=== PATIENT | female | born 1995 | race Caucasian/White ===

== ENCOUNTER 2021-06-13 09:03 | Outpatient (CLI) | payer BC, SELFPAY ==
--- NOTE | 2021-06-13 09:15 | US_ITS ---
WS: [id number] ULTRASOUND OB COMPLETE TECHNIQUE: Complete ultrasound. CLINICAL INFORMATION: SUPERVISION OF NORMAL IN 2ND TRIMESTER COMPARISON: None. FINDINGS: Cervix measures 4.3 cm Single interuterine gestation is identified with variable presentation. Placenta is posterior. Placenta grade 1. Normal amniotic fluid volume. cardiac activity: 160 BPM. AGA: 22w4d ROCIO by ultrasound: 10/13/2021 Estimated weight: 522 g., %. BDP: 5.4 cm = 22w2d HC: 20.2 cm = 22w3d AC: 17.8 cm = 22w5d FEMUR LENGTH: 3.9 cm = 22w5d Anatomic survey: Anatomic survey is normal. Normal stomach. Kidneys and bladder are normal. Normal 3 vessel cord. Norm al 3 vessel cord insertion. Normal 4 chamber heart. Normal spine. Intracranial contents are normal. N ormal posterior fossa and cisterna magna. US/US OB >= 14 weeks fetus [id number] IMPRESSION: 1. Single intrauterine with visualized cardiac activity. AGA 22w4d w ith ROCIO 10/13/2021. 2. Variable position. 3. Cervix is long and closed. 4. Placenta is posterior. No evidence of abruption or previa. 5. anatomic survey is normal. 6. Normal amniotic fluid volume.
== END 2021-06-13 09:04 | disposition home or self-care (01) ==
PROVIDERS: PCP Family Medicine; Visit Provider Family Medicine
DX: Z34.82 Encounter for supervision of other normal pregnancy, second trimester (principal)
CPT/HCPCS: 76805

== ENCOUNTER 2021-10-07 00:42 | Outpatient (CLI) | payer BC, SELFPAY ==
[2021-10-07] VITALS (8 sets, daily range): BP systolic 121–134; BP diastolic 61–73; PULSE 93–106; RESP 15; TEMP 35.9; BMI 38.6
[2021-10-07 01:29] LABS: Add Urine Culture? Yes; Bacteria Urine 3+ /hpf; Bilirubin Urine Neg (Negative); Blood Urine Neg (Negative); Glucose Urine UA Norm (Normal); Ketones Urine Negative (Negative); Leukocyte Esterase Urine 2+ (Negative); Nitrate Urine Negative (Negative); Protein Urine Neg (Negative); RBC Urine 0-4 /hpf (0-2); Urine Appearance SL Hazy (CLEAR); Urine Color Yellow (Yellow); Urobilinogen Urine Norm (Negative); WBC Urine >100 /hpf (0-5); pH Urine 7 (5-7)
[2021-10-07] MEDS: cephALEXin 500 mg Capsule PO (02:26)
== END 2021-10-07 02:37 | disposition home or self-care (01) ==
LOC: OPOB 00:43 → OBGYN 00:44
PROVIDERS: PCP Family Medicine; Visit Provider Family Medicine
DX: O36.8190 Decreased fetal movements, unspecified trimester, not applicable or unspecified (principal); Z3A.00 Weeks of gestation of pregnancy not specified
CPT/HCPCS: 59025; 81001; 87086; 99211

== ENCOUNTER 2021-10-09 14:33 | Outpatient (CLI) | payer BC, SELFPAY ==
[2021-10-09 14:44] VITALS: BP 132/81; PULSE 117; TEMP 36.3
[2021-10-09 14:48] VITALS: RESP 15
[2021-10-09 14:56] VITALS: BMI 39.1
[2021-10-09 15:00] VITALS: BP 132/63; PULSE 117
[2021-10-09 15:15] VITALS: BP 132/66; PULSE 107
[2021-10-09 15:30] VITALS: BP 132/66; PULSE 107
== END 2021-10-09 15:30 | disposition home or self-care (01) ==
LOC: OPOB 14:39 → OBGYN 14:39
PROVIDERS: PCP Family Medicine; Visit Provider Family Medicine
DX: O16.9 Unspecified maternal hypertension, unspecified trimester (principal); Z3A.00 Weeks of gestation of pregnancy not specified
CPT/HCPCS: 59025; 99211

== ENCOUNTER 2021-10-20 09:33 | Inpatient (IN) | payer BC, SELFPAY ==
[2021-10-20] VITALS (45 sets, daily range): BP systolic 114–162; BP diastolic 58–86; PULSE 79–116; RESP 17; O2SAT 98–100; BMI 39.6
[2021-10-20] MEDS: miSOPROStol 100 mcg tablet 25 MCG VAGINAL ×3 (11:09→21:50)
[2021-10-20 12:18] LABS: Basophils % 0.2 %; Eosinophils % 0.4 %; Hematocrit 32.8 % (37.0-47.0); Lymphocytes # 1.2 10^3/uL (0.8-4.8); Lymphocytes % 13.8 %; Mean Corpuscular HGB Conc 30.5 g/dL (30.0-36.0); Mean Corpuscular Hemoglobin 25.7 pg (28.0-34.0); Mean Corpuscular Volume 84.3 fl (81-99); Monocytes # 0.5 10^3/uL (0.2-0.9); Monocytes % 6.1 %; Neutrophils # 7.02 10^3/uL (1.8-7.7); Neutrophils % 78.7 %; Nucleated Red Blood Cells % 0 %; Platelet Count 197 10^3/cmm (130-400); Red Blood Count 3.89 10^6/uL (4.1-5.3); Red Cell Distribution Width 17.2 % (12.1-15.1); White Blood Count 8.9 10^3/uL (4.0-10.0)
[2021-10-20] MEDS: lactated ringers 1,000 ML 999 ML IV ×2 (18:39→19:38)
--- NOTE | 2021-10-20 20:25 | ANES.PREANE2 ---
Pre-Anesthetic Assessment Height/Weight: Height 1.63 m Weight 104.78 kg Pulse Resp BP Pulse Ox O2 Del Method 96 17 119/63 100 10/20/21 20:23 10/20/21 10:54 10/20/21 20:23 10/20/21 20:18 10/20/21 10:54 Labor Epidural Familial anesthetic complications: None Last intake: 1130 meal 10/20/21 clears- current. Social No alcohol and No tobacco Exam alert, oriented x 3 and clear to auscultation bilaterally Airway Submandibular: within normal limits Cervical ROM: within normal limits Mallampati: Class II Dentition: full History/ROS No significant history except as noted Pulmonary None reported CV/HEM None reported None reported Hepatic None reported GI Gastroesophageal Reflux Disease Metabolic None reported Musc/skel None reported Neuropsych None reported Anesthetic Plan ASA status: 2 Anesthesia: Regional (specify below) Other: Labor Epidural Medications/Allergies Home Medications Medication Instructions Recorded Confirmed Last Taken Type 1 tab PO DAILY 10/07/21 10/07/21 10/09/21 08:00 History omeprazole 20 mg capsule,delayed 20 mg PO DAILY 10/07/21 10/07/21 10/09/21 08:00 History release Allergies Allergy/AdvReac Type Severity Reaction Status Date / Time diphenhydramine Allergy ALGY-Hives Verified 10/09/21 15:00 [From Benadryl] Current Medications Generic Name Dose Route Start Last Admin Trade Name Freq PRN Reason Stop Dose Admin Lactated Ringer's 1,000 mls @ 999 mls/hr 10/20/21 16:11 10/20/21 19:38 Lactated Ringers IV 999 mls/hr .Q1H1M PRN Administration See label comments PFSH Anesthesia Female Reproductive History : 4 Data Anesthesia : 10/20/21 10:30 Short CBC 10/20/21 Range/Units 10:30 WBC 8.9 (4.0-10.0) 10^3/uL Hgb 10.0 L (11.5-15.3) g/dL Hct 32.8 L (37.0-47.0) % MCV 84.3 (81-99) fl Plt Count 197 (130-400) 10^3/cmm Neut % (Auto) 78.7 % Neut # (Auto) 7.02 (1.8-7.7) 10^3/uL Cardiac Studies: No Data to Display Anesthesia Procedures Epidural Time Out Performed: Yes Consent: from patient, risks and benefits reviewed and patient agrees to proceed Lumbar Level: L3-L4 Epidural position: sitting Epidural procedure: sterile prep of area, 1% lidocaine to numb the area, negative for paresthesia passed, test dose given, 1.5% xylocaine 1:200k epi, placed PCEA, no systemic response, sterile dressing applied, L.U.D. no apparent complications and 0.2% Ropiavacaine @ mls/hr (13) Additional Comments: Epidural placement successful on first attempt. EMILY 7.5 cm catheter threaded to 15 cm 100 mcg fentanyl given remaining 1 ml of 1% Lidocaine given with 3 ml sterile water. pump connected and started at 13 ml/hr.
[2021-10-20] MEDS: dextrose 5%-lactated ringers 1,000 ML 125 ML IV (21:38)
[2021-10-20] MEDS: ondansetron 2 mg/ML SDV 2 mL 4 MG IVP (23:48)
[2021-10-21] VITALS (60 sets, daily range): BP systolic 112–155; BP diastolic 57–123; PULSE 65–110; RESP 16; TEMP 35.4–37.1; O2SAT 97–98
[2021-10-21] MEDS: oxytocin 30 UNIT/500 ML BAG IV (03:04)
[2021-10-21] MEDS: ondansetron 2 mg/ML SDV 2 mL 4 MG IVP (05:31)
--- NOTE | 2021-10-21 07:52 | PM.OPHPUD ---
Labor & Delivery H&P Update Date of Procedure: October 21, 2021 Date H&P Performed: 10/16/21 Changes to previous documentation: None Admission Diagnosis: 26-year-old 3 para 2-0-0-2 at 39 weeks estimated gestational age Primary indication for procedure: Elective induction Planned procedure: Vaginal delivery Other information: The patient is a 39-week and 6-day estimated gestational age female who presented to the hospital for induction. Her has been unremarkable. Her blood type is O+. Her antibody screen is negative. Her infectious disease panel is within normal limits. Her glucose screen was normal. She is GBS negative. There were no concerns otherwise. I discussed the risks of induction with the patient. She acknowledges risks and wishes to proceed. Her is leaving town, and she wishes for him to be here during the delivery. We initiated Cytotec, and have followed up with Pitocin. An amniotomy was performed this morning.
--- NOTE | 2021-10-21 13:49 | P.PCNOB_ITS ---
Delivery Note: Date of delivery: October 21, 2021 Pre-delivery diagnoses: 26-year-old 3 para 2-0-0-2 at 39 weeks presenting for induction Post- delivery diagnoses: Status post spontaneous vaginal delivery Procedure: Spontaneous vaginal delivery Delivering Physician: Janes Beltran Estimated blood loss (mL): 200 Pre-Delivery Course: The patient presented to the hospital the day prior to her delivery. She was placed on Cytotec. Her labor was then augmented with Pitocin. An amniotomy was performed. She then progressed to complete without difficulty. The baby had a category 1 tracing during the large majority of her labor. Delivery: DELIVERY: The patient progressed to complete without difficulty. She delivered a male with a weight of 8 pounds 4 ounces with Apgars of 9, 9. The baby was delivered from the DADA position and placed on the mother's abdomen. The cord was then clamped and cut 1 minute after delivery. There was no nuchal cord. There was light meconium. The placenta and 3 vessel cord were delivered intact shortly thereafter. The perineum and vaginal vault were carefully examined. No lacerations were noted. Both the mother and the baby were in s table condition. Post-Delivery Status: Good A&P Assessment and plan (1) Status post vaginal delivery: I anticipate routine care. Status: Acute (2) 39 weeks gestation of : Status: Acute (3) Sterilization consult: We discussed the tubal ligation once again, and the patient does reiterate her desire for sterilization. We once again discussed the risk of bleeding, infection, and damage to intra-abdominal organs. She also understands that there is an increased risk of ectopic , and that she could become again this bide a successful tubal ligation. It appears we will be performing her tubal ligation at 5 PM today after her delivery. Status: Acute Coding Level of Care Code Acute Conservation Worker for Chg Fwd Diagnoses Status post vaginal delivery 39 weeks gestation of Z3A.39 Sterilization consult Z30.09
[2021-10-21] MEDS: dextrose 5%-lactated ringers 1,000 ML 125 ML IV (13:58)
--- NOTE | 2021-10-21 16:24 | ANE.PACU2 ---
Inpatient post-anesthesia follow up: Airway intact: Yes Vital signs: Temperature 98.7 F Pulse Rate 99 Respiratory Rate 17 Blood Pressure 154/67 Pulse Oximetry 100 Oxygen Delivery Me thod Room Air Oxygen Flow Rate Fraction of Inspir ed Oxygen Hydration adequate: Yes Nausea and vomiting: No Pain level: 2 Mental status: Baseline
--- NOTE | 2021-10-21 17:57 | PC.NURSE ---
ambulated to OB9. oriented to room/call light
[2021-10-21] MEDS: docusate sodium 100 mg Capsule PO (20:22)
[2021-10-21] MEDS: ibuprofen 800 mg tablet PO (20:22)
[2021-10-21] MEDS: lanolin oint 7 gm 1 APPLIC TOPICAL (20:22)
[2021-10-21] MEDS: benzocaine-menthol 78 gm Canister 1 SPRAY TOPICAL (20:23)
[2021-10-22] VITALS (13 sets, daily range): BP systolic 106–146; BP diastolic 60–83; PULSE 62–92; RESP 14–18; TEMP 36.4–37; O2SAT 92–99
[2021-10-22 02:17] LABS: Hematocrit 28.9 % (37.0-47.0); Hemoglobin 8.7 g/dL (11.5-15.3); Mean Corpuscular HGB Conc 30.1 g/dL (30.0-36.0); Mean Corpuscular Hemoglobin 25.3 pg (28.0-34.0); Mean Platelet Volume 11.6 fL (7.4-10.4); Platelet Count 163 10^3/cmm (130-400); Red Blood Count 3.44 10^6/uL (4.1-5.3); Red Cell Distribution Width 17.1 % (12.1-15.1); White Blood Count 10.1 10^3/uL (4.0-10.0)
--- NOTE | 2021-10-22 06:13 | PM.OBGYHP ---
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 During her she expressed a desire to have a tubal ligation . Her labs were unremarkable. Present Details : 4 Para: 3 Labs Rubella: Immune RPR: Negative GBS: Negative Review of Systems General: Reports: 10 or more systems reviewed and unremarkable except in HPI and below Const: Reports: fatigue; Denies: fever(s) Eyes: Denies: change in vision Card: Denies: chest pain : Reports: other ( bleeding within normal limits.) Musc: Reports: back pain Alexx/Lymph: Denies: easy bruising Medications/Allergies Home Medications Medication Instructions Recorded Confirmed Last Taken Type 1 tab PO DAILY 10/07/21 10/07/21 10/09/21 08:00 History omeprazole 20 mg capsule,delayed 20 mg PO DAILY 10/07/21 10/07/21 10/09/21 08:00 History release Allergies Allergy/AdvReac Type Severity Reaction Status Date / Time diphenhydramine Allergy ALGY-Hives Verified 10/09/21 15:00 [From Benadryl] Vitals/I&O/Wt Last Vital Signs Temp 98.0 F 10/22/21 03:30 Pulse 75 10/22/21 03:30 Resp 16 10/22/21 03:30 BP 111/66 10/22/21 03:30 Pulse Ox 98 10/22/21 03:30 O2 Del Method 10/22/21 03:30 10/21/21 10/21/21 10/22/21 14:59 22:59 06:59 Intake Total 172.133 / 648.718 1796 / 1172.133 Output Total 900 / 900 Balance -727.867 / -031.861 5580 / 272.133 Weight last 48 hrs Weight 231 lb Physical Exam Const: COMMON NORMALS: patient oriented x3 and alert HENMT: COMMON NORMALS: moist oral mucous membranes HEAD & SCALP: normal to inspection Chest: COMMONS NORMALS: normal inspection of the chest Resp: COMMON NORMALS: clear to auscultation bilaterally AUSCULTATION: clear to auscultation bilaterally Cardio: COMMON NORMALS: regular rate and regular rhythm RATE: regular rate RHYTHM: regular rhythm GI: INSPECTION: Yes normal to inspection : UTERUS PALPATION: Yes Other OB uterine findings (The fundus is palpable 2 cm below the umbilicus) Extremity: COMMON NORMALS: normal to inspection GENERAL: Yes edema (Trace) Neuro: COMMON NORMALS: patient oriented x3, moves all extremities and no sensory deficits noted SENSORIUM/ORIENTATION: Yes alert Psych: COMMON NORMALS: mental status grossly normal Skin: COMMON NORMALS: no rashes or lesions noted GENERAL SKIN EXAM: no rashes or lesions noted Urinary Catheter Management: [place]: Cath Placed During This Visit: yes Reason for Continuing Indwelling Catheter: Required Immobilization for Trauma or Surgery or Anesthesia Urinary Catheter Date of Insertion: 10/20/21 Urinary Catheter Time of Insertion: 21:13 Data : 10/22/21 02:04 A&P Assessment and plan (1) Sterilization consult: The patient is scheduled for a 5 PM OR time. We once again discussed the risks of bleeding, infection, and damage intra-abdominal organs. We also discussed the possibility of becoming again after a successful tubal ligation, as well as an increased risk for an ectopic post tubal ligation. She and her had no further questions and wished to proceed. I anticipate that she will be going home this evening after the tubal ligations been performed. Status: Acute (2) 39 weeks gestation of : Status: Acute (3) Status post vaginal delivery: Status: Acute Attestations Medical Necessity Statement*: Routine and post tubal ligation care Coding Level of Care Code Acute Mine Analyst for Yesika Fwkishan Diagnoses Sterilization consult Z30.09 39 weeks gestation of Z3A.39 Status post vaginal delivery
--- NOTE | 2021-10-22 06:23 | P.DS_ITS ---
Discharge Providers HOBBIES AND CRAFTS SALES REPRESENTATIVE Date of Admission: 10/20/21 09:33 Date of Discharge: 10/22/21 Attending Provider at Admission: Janes Beltran MD Attending Provider at Discharge: Janes Beltran MD Primary Care Provider: Janes Beltran Diagnoses at Discharge Discharge Diagnosis (1) Sterilization consult: Status: Acute (2) 39 weeks gestation of : Status: Acute (3) Status post vaginal delivery: Status: Acute Reason for Visit Reason for Visit: IOL Hospital Course Hospital Course The patient presented to the hospital for induction at 39 weeks. She received Cytotec, augmented by Pitocin. An amniotomy was performed. She progressed to complete and had an unremarkable delivery of a healthy-appearing male infant. Her course was unremarkable. She desired a tubal, and a tubal ligation was performed on the day of discharge. Her postoperative course was unremarkable. There were no concerns. Information Peripartum Data: Infant Delivery Method: Vaginal Physical Exam Narrative: She is in no acute distress Lungs are clear auscultation bilaterally Her heart has a regular rate and rhythm Her fundus is below the umbilicus and firm Her dressing is clean, dry and intact Her extremities have trace edema Urinary Catheter Management: [place]: Cath Placed During This Visit: yes Reason for Continuing Indwelling Catheter: Required Immobilization for Trauma or Surgery or Anesthesia Urinary Catheter Date of Insertion: 10/20/21 Urinary Catheter Time of Insertion: 21:13 Discharge Data Studies Completed and Pending Laboratory Results WBC 10.1 10^3/uL (4.0-10.0) H 10/22/21 02:04 RBC 3.44 10^6/uL (4.1-5.3) L 10/22/21 02:04 Hgb 8.7 g/dL (11.5-15.3) L 10/22/21 02:04 Hct 28.9 % (37.0-47.0) L 10/22/21 02:04 MCV 84.0 fl (81-99) 10/22/21 02:04 MCH 25.3 pg (28.0-34.0) L 10/22/21 02:04 MCHC 30.1 g/dL (30.0-36.0) 10/22/21 02:04 RDW 17.1 % (12.1-15.1) H 10/22/21 02:04 Plt Count 163 10^3/cmm (130-400) 10/22/21 02:04 MPV 11.6 fL (7.4-10.4) H 10/22/21 02:04 Neut % (Auto) 78.7 % 10/20/21 10:30 Lymph % (Auto) 13.8 % 10/20/21 10:30 [place] % (Auto) 6.1 % 10/20/21 10:30 Eos % (Auto) 0.4 % 10/20/21 10:30 Baso % (Auto) 0.2 % 10/20/21 10:30 Neut # (Auto) 7.02 10^3/uL (1.8-7.7) 10/20/21 10:30 Lymph # (Auto) 1.2 10^3/uL (0.8-4.8) 10/20/21 10:30 [place] # (Auto) 0.5 10^3/uL (0.2-0.9) 10/20/21 10:30 Eos # (Auto) 0.0 10^3/uL (0.0-0.8) 10/20/21 10:30 Baso # (Auto) 0.0 10^3/uL (0.0-0.1) 10/20/21 10:30 Nucleated RBC % (auto) 0 % 10/20/21 10:30 Nucleated RBCs # 0.0 /100WBC 10/20/21 10:30 Vitals Last Vital Signs Temp 98.0 F 10/22/21 03:30 Pulse 75 10/22/21 03:30 Resp 16 10/22/21 03:30 BP 111/66 10/22/21 03:30 Pulse Ox 98 10/22/21 03:30 O2 Del Method 10/22/21 03:30 Discharge Plan Discharge Patient Disposition: Home Prescriptions: New ibuprofen 800 mg Tablet 800 mg PO TID Qty: 45 0RF hydrocodone-acetaminophen 5-325 mg Tablet 1 tab PO Q6H PRN (Reason: Moderate To Severe Pain) Qty: 10 0RF Continued tablet 1 tab PO DAILY Discontinued omeprazole 20 mg Capsule,Delayed Release(Dr/Ec) 20 mg PO DAILY Discharge Orders: Discharge Order (Routine); Ordered 10/22/21 Ordered By: Janes Beltran Referrals: Janes Beltran MD [Physician] - 4-7 days Discharge Diet: Usual diet Discharge Activity: Limit activity as instructed Patient Instructions: Depression (DC), Bleeding (DC), Preeclampsia and Eclampsia After Delivery (GEN), Vaginal Delivery (DC), OB Discharge Report, OB Food/Drug Interaction Guide, Opioid Safety, OB H ome Care, OB Proud Parent Packet Discharge Attestations HOBBIES AND CRAFTS SALES REPRESENTATIVE Time Spent in Discharge Care*: less than 30 min Coding Level of Care Code Acute Surtass Analyst for Chg Fwd Diagnoses Sterilization consult Z30.09 39 weeks gestation of Z3A.39 Status post vaginal delivery
[2021-10-22] MEDS: prenatal vitamin Capsule 1 CAP PO (07:38)
[2021-10-22] MEDS: docusate sodium 100 mg Capsule PO (07:38)
[2021-10-22] MEDS: ibuprofen 800 mg tablet PO ×2 (07:38→21:05)
--- NOTE | 2021-10-22 16:20 | ANES.PREANE2 ---
Pre-Anesthetic Assessment Height/Weight: Height 1.63 m Weight 104.78 kg Temp Pulse Resp BP Pulse Ox O2 Del Method 97.8 F 72 14 116/72 98 10/22/21 08:44 10/22/21 10:12 10/22/21 10:12 10/22/21 10:12 10/22/21 03:30 10/22/21 03:30 Preop Diagnosis: female desiring sterilization Operation Date: 10/22/21 17:00 Proposed Procedures p Post Bilateral Tubal Ligation(Not Applicable) - Janes Beltran MD Familial anesthetic complications: none Was Beta Sreekanth taken within 24 hours: N/A Was Clonidine taken within 24 hours: N/A Social No alcohol and No tobacco Exam alert, oriented x 3, clear to auscultation bilaterally and regular rate & rhythm Airway Submandibular: within normal limits Cervical ROM: within normal limits Mallampati: Class II Dentition: full History/ROS No significant history except as noted Anesthetic Plan ASA status: 2 Anesthesia: Choice Medications/Allergies Home Medications Medication Instructions Recorded Confirmed Last Taken Type 1 tab PO DAILY 10/07/21 10/07/21 10/09/21 08:00 History omeprazole 20 mg capsule,delayed 20 mg PO DAILY 10/07/21 10/07/21 10/09/21 08:00 History release Allergies Allergy/AdvReac Type Severity Reaction Status Date / Time diphenhydramine Allergy ALGY-Hives Verified 10/09/21 15:00 [From Benadryl] Current Medications Generic Name Dose Route Start Last Admin Trade Name Freq PRN Reason Stop Dose Admin Benzocaine 1 spray 10/21/21 14:00 10/21/21 20:23 Benzocaine-Menthol 78 Gm Canister TOPICAL 1 can PRN PRN Administration PAIN Docusate Sodium 100 mg 10/21/21 18:00 10/22/21 07:38 Docusate Sodium 100 Mg Capsule PO 100 mg BID NEIL Administration Ibuprofen 800 mg 10/21/21 15:00 10/22/21 07:38 Ibuprofen 800 Mg Tablet PO 800 mg TID NEIL Administration Lanolin 1 applic 10/21/21 14:00 10/21/21 20:22 Lanolin Oint 7 Gm TOPICAL 1 tube PRN PRN Administration DRYNESS Multivit/Folic Acid/Iron 1 cap 10/22/21 09:00 10/22/21 07:38 Vitamin Capsule PO 1 cap DAILY NEIL Administration PFSH Anesthesia Female Reproductive History : 4 Data Anesthesia : 10/22/21 02:04 Short CBC 10/22/21 Range/Units 02:04 WBC 10.1 H (4.0-10.0) 10^3/uL Hgb 8.7 L (11.5-15.3) g/dL Hct 28.9 L (37.0-47.0) % MCV 84.0 (81-99) fl Plt Count 163 (130-400) 10^3/cmm Cardiac Studies: No Data to Display
[2021-10-22] MEDS: citric acid-sodium citrate 30 mL UDC PO (16:24)
[2021-10-22] MEDS: metoclopramide 5 mg/mL SDV 2 mL 10 MG IVP (16:25)
[2021-10-22] MEDS: famotidine 20 mg/2 mL INJ IVP (16:25)
--- NOTE | 2021-10-22 17:25 | PC.NURSE ---
To OB OR at 0500
--- NOTE | 2021-10-22 18:11 | PM.OP ---
Operative Report Date of procedure: October 22, 2021 Pre-op diagnosis: Preop Diagnosis female desiring sterilization Post-op diagnosis: same Procedure done: Minilaparotomy bilateral tubal ligation Specimens removed/disposition: Bilateral fallopian tube segments with the right segment being tagged sent to pathology in the same container Surgeon: Janes Beltran Estimated blood loss (mL): 5 Complications: None Procedure: The patient was brought back to the operating room where anesthesia was found to be adequate. 10 mL of 0.5% bupivacaine was then used to pre-anesthetize the area just inferior to the umbilicus. A #15 blade was then used to make a 3 cm transverse incision just inferior to the umbilicus. I then dissected down to the underlying subcutaneous tissue until arriving at the fascia. The fascia was then nicked with the scalpel. The fascial incision was extended manually. I identified the fundus of the uterus and followed it to the left fallopian tube. The fallopian tube was then followed to the fimbria. The tube was then ligated, cut, and cauterized in a modified [place] fashion using 0 chromic. The right fallopian tube was then identified and followed through to the fimbria. It was ligated, cut, and cauterized in similar fashion. The right fallopian tube was tagged. Both fallopian tubes had excellent hemostasis. The fascia was reapproximated using 0 Vicryl in running stitch. The subcutaneous tissue was carefully examined and no further bleeding was noted. The skin was then reapproximated using 4-0 Vicryl in a running subcuticular stitch. A sterile dressing was placed. All counts were correct x2. The patient was moved to the recovery room in stable condition.
--- NOTE | 2021-10-22 18:21 | ANE.PACU2 ---
Inpatient post-anesthesia follow up: Airway intact: Yes Vital signs: Temperature 98.6 F Pulse Rate 68 Respiratory Rate 18 Blood Pressure 125/82 Pulse Oximetry 98 Oxygen Delivery Me thod Room Air Oxygen Flow Rate Fraction of Inspir ed Oxygen Hydration adequate: Yes Nausea and vomiting: No Pain level: Other (0) Mental status: Baseline
[2021-10-22] MEDS: phenol oral Spray 177 mL 3 SPRAY MUCOUS MEM (19:33)
[2021-10-22] MEDS: HYDROcodone-acetaminophen 5-325 mg Tablet PO (19:36)
[2021-10-23 04:08] VITALS: BP 107/62; PULSE 58; RESP 17; TEMP 36.8; O2SAT 98
[2021-10-23] MEDS: HYDROcodone-acetaminophen 5-325 mg Tablet PO (06:30)
[2021-10-23] MEDS: docusate sodium 100 mg Capsule PO (09:12)
[2021-10-23] MEDS: ibuprofen 800 mg tablet PO (09:12)
[2021-10-23] MEDS: prenatal vitamin Capsule 1 CAP PO (09:12)
[2021-10-23 09:20] VITALS: BP 112/60; PULSE 18; RESP 18; TEMP 36.7; O2SAT 98
== END 2021-10-23 09:45 | disposition home or self-care (01) | DRG 798 ==
LOC: OPOB 09:34 → OBGYN 09:34
PROVIDERS: Admitting Provider Family Medicine; PCP Family Medicine; Visit Provider Family Medicine
PROC: 0UB70ZZ Excision of Bilateral Fallopian Tubes, Open Approach (ICD-10-PCS; CPT 58605; principal; 2021-10-22 17:00)
DX: O77.0 Labor and delivery complicated by meconium in amniotic fluid (principal); Z37.0 Single live birth; O90.89 Other complications of the puerperium, not elsewhere classified; G89.18 Other acute postprocedural pain; Z3A.39 39 weeks gestation of pregnancy; Z30.2 Encounter for sterilization
CPT/HCPCS: 12345; 36415; 51702; 58605; 59025; 59409; 85025; 85027; 88302; J0330; J1100; J1885; J2250; J2405; J2704; J2765; J2795; J3010; J3490

== ENCOUNTER 2021-10-28 21:05 | Emergency (ER) | payer BC, SELFPAY ==
[2021-10-28 21:06] VITALS: BMI 35.2
[2021-10-28 21:09] VITALS: BP 148/84; PULSE 84; RESP 16; TEMP 36.5; O2SAT 96
--- NOTE | 2021-10-28 21:17 | USR_ITS ---
PROCEDURE INFORMATION: Exam: US Nonobstetric Pelvis; Complete Exam date and time: 10/28/2021 9:41 PM Age: 26 years old Clinical indication: Other: Post- on 10/21/2021 with heavy vaginal bleeding tonight; Additional info: Post bleeding TECHNIQUE: Imaging protocol: Transabdominal pelvic nonobstetric ultrasound. Complete exam. Real time ultrasound with image documentation. COMPARISON: US OB >= 14 weeks fetus [id number] 06/13/2021 9:21 AM FINDINGS: GESTATION: Gestation: [id number] amount of complex material in the uterine cavity may reflect blood products, retained products of conception are not excluded, close clinical correlation advised. Negative for color blood flow seen within this material. Uterus: Uterus is enlarged measuring 17 x 6.9 x 10 cm with a thickened endometrium to 2 cm, likely post in nature. Right ovary/adnexa: Ovary is normal. No mass. Normal blood flow. Left ovary/adnexa: Ovary is normal. No mass. Normal blood flow. Intraperitoneal space: No intraperitoneal fluid. Urinary bladder: Normal. US/US pelvic complete* [id number] IMPRESSION: 1. Uterus is enlarged measuring 17 x 6.9 x 10 cm with a thickened endometrium to 2 cm, likely post in nature. 2. [id number]-yp-[id number] amount of complex material in the uterine cavity may reflect blood products, retained products of conception are not excluded, close clinical correlation advised. Negative for color blood flow seen within this material.
--- NOTE | 2021-10-28 21:19 | ED_ITS ---
HPI - General Adult General: Chief complaint: Vaginal Bleeding Stated complaint: VAG BLEEDING Time Seen by Provider: 10/28/21 21:06 Source: patient and EMS Mode of arrival: EMS Limitations: no limitations History of Present Illness: 26-year-old female who is 7 days . She had a vaginal delivery at term she had no issues. States today she has had some heavy vaginal bleeding. She states that its been fairly heavy and then slowed down and is heavier again she denies passing any clots denies any lightheadedness denies any pain denies any fevers denies any worsening improving factors. Associated symptoms: Deny chest pain, dyspnea, headache(s), nausea, rash or vomiting Review of Systems Const: Denies: fever(s), chills, body aches or change in appetite Eyes: Denies: blurry vision or eye discomfort ENMT: Denies: throat pain or dental pain Card: Denies: chest pain Resp: Denies: dyspnea GI: Denies: abdominal pain, nausea, vomiting or diarrhea : Reports: vaginal bleeding Musc: Denies: neck pain or back pain Skin/Breast: Denies: rash Neuro: Denies: headache(s) Psych: Denies: depression Alexx/Lymph: Denies: easy bruising All/Imm: Denies: urticaria Physical Exam Const: COMMON NORMALS: no acute distress, patient oriented x3 and healthy appearing HENMT: COMMON NORMALS: normocephalic and atraumatic HEAD & SCALP: normocephalic and atraumatic Eye: COMMON NORMALS: Equal, round and reactive pupils present and EOMs intact bilaterally PUPIL: Yes Equal, round and reactive pupils present Neck/C-Spine: COMMON NORMALS: full ROM and supple Chest: COMMONS NORMALS: normal inspection of the chest and normal palpation of entire chest wall Resp: COMMON NORMALS: normal respiratory effort, No retractions, No use of accessory muscles and clear to auscultation bilaterally AUSCULTATION: clear to auscultation bilaterally Cardio: COMMON NORMALS: regular rate, regular rhythm and No murmurs present (Cardio) RATE: regular rate RHYTHM: regular rhythm GI: COMMON NORMALS: Normal to inspection, nondistended, normoactive bowel sounds present, Soft to palpation, non-tender and no masses PALPATION: Yes Soft to palpation : OTHER: Cervix closed no active bleeding at this time very small old clot in the vaginal vault Extremity: COMMON NORMALS: normal to inspection and full ROM Neuro: COMMON NORMALS: patient oriented x3, moves all extremities and no focal motor deficits Psych: COMMON NORMALS: mental status grossly normal, Normal thought process present and cooperative THOUGHT PROCESS: Normal thought process present Skin: COMMON NORMALS: no rashes or lesions noted and no wounds GENERAL SKIN EXAM: no rashes or lesions noted Course Vital Signs: Vital signs: Vital Signs Temperature 97.7 F 10/28/21 21:09 Pulse Rate 84 10/28/21 21:09 Respiratory Rate 16 10/28/21 21:09 Blood Pressure 148/84 10/28/21 21:09 Pulse Oximetry 96 10/28/21 21:09 Oxygen Delivery Me thod 10/28/21 21:09 [facility] - General Adult Medical Decision Making Patient presents here with bleeding her bleeding is minimal my pelvic exam she had no bleeding from her cervix during the exam does have some slight retained blood on the ultrasound I did speak to her OB Dr. Beltran will plan on discharge at this time her vitals and hemoglobin are stable she actually has an appoint with him tomorrow and she is to follow-up as scheduled return if her bleeding worsens. Lab Data : 10/28/21 21:50 10/28/21 21:50 Radiology Impressions Pelvis Ultrasound 10/28/21 21:17 IMPRESSION: 1. Uterus is enlarged measuring 17 x 6.9 x 10 cm with a thickened endometrium to 2 cm, likely post in nature. 2. [id number] amount of complex material in the uterine cavity may reflect blood products, retained products of conception are not excluded, close clinical correlation advised. Negative for color blood flow seen within this material. Laboratory Results WBC 9.1 10^3/uL (4.0-10.0) 10/28/21 21:50 RBC 4.47 10^6/uL (4.1-5.3) 10/28/21 21:50 Hgb 11.2 g/dL (11.5-15.3) L 10/28/21 21:50 Hct 37.1 % (37.0-47.0) 10/28/21 21:50 MCV 83.0 fl (81-99) 10/28/21 21:50 MCH 25.1 pg (28.0-34.0) L 10/28/21 21:50 MCHC 30.2 g/dL (30.0-36.0) 10/28/21 21:50 RDW 17.1 % (12.1-15.1) H 10/28/21 21:50 Plt Count 273 10^3/cmm (130-400) 10/28/21 21:50 MPV 10.6 fL (7.4-10.4) H 10/28/21 21:50 Neut % (Auto) 75.1 % 10/28/21 21:50 Lymph % (Auto) 17.1 % 10/28/21 21:50 [place] % (Auto) 5.6 % 10/28/21 21:50 Eos % (Auto) 1.3 % 10/28/21 21:50 Baso % (Auto) 0.4 % 10/28/21 21:50 Neut # (Auto) 6.86 10^3/uL (1.8-7.7) 10/28/21 21:50 Lymph # (Auto) 1.6 10^3/uL (0.8-4.8) 10/28/21 21:50 [place] # (Auto) 0.5 10^3/uL (0.2-0.9) 10/28/21 21:50 Eos # (Auto) 0.1 10^3/uL (0.0-0.8) 10/28/21 21:50 Baso # (Auto) 0.0 10^3/uL (0.0-0.1) 10/28/21 21:50 Nucleated RBC % (auto) 0 % 10/28/21 21:50 Nucleated RBCs # 0.0 /100WBC 10/28/21 21:50 Sodium 139 mmol/L (136-145) 10/28/21 21:50 Potassium 4.2 mmol/L (3.5-5.1) 10/28/21 21:50 Chloride 103 mmol/L (98-107) 10/28/21 21:50 Carbon Dioxide 23 mmol/L (22-29) 10/28/21 21:50 Anion Gap 17.2 (5-19) 10/28/21 21:50 BUN 12 mg/dL (6-20) 10/28/21 21:50 Creatinine 0.6 mg/dL (0.5-0.9) 10/28/21 21:50 GFR Calculation 122.8 mL/min (90-130) 10/28/21 21:50 Glucose 86 mg/dL (65-115) 10/28/21 21:50 Calculated Osmolality 287 mOsm/kg (285-295) 10/28/21 21:50 Calcium 10.1 mg/dL (8.5-10.5) 10/28/21 21:50 Discharge Plan Discharge Patient Disposition: Home Clinical Impression: Vaginal bleeding Condition: Stable Prescriptions: No Action ibuprofen 800 mg Tablet 800 mg PO TID Qty: 45 0RF hydrocodone-acetaminophen 5-325 mg Tablet 1 tab PO Q6H PRN (Reason: Moderate To Severe Pain) Qty: 10 0RF tablet 1 tab PO DAILY Discharge Orders: Discharge ED (Routine); Ordered 10/28/21 Ordered By: Nain Davidson Referrals: Janes Beltran MD [Primary Care Provider] - 1-3 days Discharge Diet: Advance as tolerated Discharge Activity: Resume usual activity Patient Instructions: Bleeding (ED) Coding Level of Care Code ED Senior Network Security Engineer for Chg Fwd Exam Comprehensive
[2021-10-28 21:53] LABS: Basophils % 0.4 %; Eosinophils # 0.1 10^3/uL (0.0-0.8); Eosinophils % 1.3 %; Hematocrit 37.1 % (37.0-47.0); Hemoglobin 11.2 g/dL (11.5-15.3); Lymphocytes # 1.6 10^3/uL (0.8-4.8); Lymphocytes % 17.1 %; Mean Corpuscular HGB Conc 30.2 g/dL (30.0-36.0); Mean Corpuscular Hemoglobin 25.1 pg (28.0-34.0); Mean Platelet Volume 10.6 fL (7.4-10.4); Monocytes # 0.5 10^3/uL (0.2-0.9); Monocytes % 5.6 %; Neutrophils # 6.86 10^3/uL (1.8-7.7); Neutrophils % 75.1 %; Nucleated Red Blood Cells % 0 %; Platelet Count 273 10^3/cmm (130-400); Red Blood Count 4.47 10^6/uL (4.1-5.3); Red Cell Distribution Width 17.1 % (12.1-15.1); White Blood Count 9.1 10^3/uL (4.0-10.0)
[2021-10-28 22:18] LABS: Anion Gap 17.2 (5-19); Blood Urea Nitrogen 12 mg/dL (6-20); Calcium 10.1 mg/dL (8.5-10.5); Carbon Dioxide 23 mmol/L (22-29); Chloride 103 mmol/L (98-107); Glomerular Filtration Rate 122.8 mL/min (90-130); Glucose 86 mg/dL (65-115); Osmolality Calculated 287 mOsm/kg (285-295); Potassium 4.2 mmol/L (3.5-5.1); Sodium 139 mmol/L (136-145)
[2021-10-28 23:06] VITALS: BP 135/84; PULSE 92; RESP 16; O2SAT 96
== END 2021-10-28 23:21 | disposition home or self-care (01) ==
PROVIDERS: Emergency Provider Emergency Medicine; PCP Family Medicine
DX: N93.9 Abnormal uterine and vaginal bleeding, unspecified (principal)
CPT/HCPCS: 76856; 80048; 85025; 99284

== ENCOUNTER 2021-11-08 19:27 | Emergency (ER) | payer BC, SELFPAY ==
[2021-11-08 19:30] VITALS: BP 199/76; PULSE 139; RESP 18; TEMP 38.3; O2SAT 97; BMI 35.9
--- NOTE | 2021-11-08 20:15 | ED_ITS ---
HPI - General Adult General: Chief complaint: General Medical Stated complaint: right breast pain Time Seen by Provider: 11/08/21 20:00 History of Present Illness: Patient is a 26-year-old female presenting to the emergency room for 3 days of right-sided breast pain. Patient still has been pumping. Most recently on Wednesday, patient noticed areas of redness and swelling of the right breast. Patient was prescribed Keflex by Dr. Beltran. Patient has been using Keflex for the last 2 days however noticed worsening swelling and pain. In addition, patient had a fever of 103 degrees yesterday. Earlier today, patient went to urgent care was prescribed Dicloxacillin. She went to the pharmacy was unable to fulfill the prescription. Patient then came to the emergency room. Home in triage, patient was noted to be tachycardic to the 130s with a fever of 103 degrees. Patient complains of significant pain of the right breast. Patient has no complaints of left breast. Denies any nausea/vomiting, purulent drainage from the breast, diarrhea, abdominal pain, nausea/vomiting, melena/hematochezia, complaints Onset: 3 days ago Duration:3 days Location:home Severity:moderate/severe Associated symptoms: Reports malaise; Deny chest pain, dyspnea, nausea, palpitations or vomiting Review of Systems Const: Reports: fever(s), chills, fatigue and malaise Eyes: Denies: change in vision ENMT: Denies: mouth pain Card: Denies: chest pain or palpitations Resp: Denies: dyspnea or non-productive cough GI: Denies: abdominal pain, nausea, vomiting or diarrhea : Denies: dysuria Musc: Denies: extremity pain Skin/Breast: Reports: new lesions (+R breast swelling, redness and pain) Neuro: Denies: weakness in extremities Psych: Reports: other (Normal mood) Alexx/Lymph: Denies: easy bruising PFSH ED PFSH: Medical History Social History Smoking and tobacco status: never smoked Alcohol intake: never Substance/Drug Use: never Physical Exam Const: COMMON NORMALS: alert HENMT: COMMON NORMALS: atraumatic HEAD & SCALP: atraumatic MOUTH: moist mucous membranes not abnormal Eye: COMMON NORMALS: EOMs intact bilaterally and conjunctivae normal CONJUNCTIVA: Yes conjunctivae normal Neck/C-Spine: COMMON NORMALS: full ROM and supple Resp: COMMON NORMALS: normal respiratory effort and clear to auscultation bilaterally AUSCULTATION: clear to auscultation bilaterally Cardio: COMMON NORMALS: regular rate RATE: regular rate GI: COMMON NORMALS: Soft to palpation and non-tender PALPATION: Yes Soft to palpation Extremity: COMMON NORMALS: full ROM Neuro: SENSORIUM/ORIENTATION: Yes alert MOTOR EXAM: No Abnormal motor strength present and Other motor observations present (no focal motor deficits) Psych: COMMON NORMALS: speech normal SPEECH: Yes normal speech MOOD & AFFECT: Yes euthymic mood Course Vital Signs: Vital signs: Vital Signs Temperature 100.9 F H 11/08/21 19:30 Pulse Rate 112 H 11/09/21 00:04 Respiratory Rate 19 H 11/09/21 00:04 Blood Pressure 199/76 11/08/21 19:30 Pulse Oximetry 100 11/09/21 00:04 Oxygen Delivery Me thod 11/08/21 19:30 MDM - General Adult Medical Decision Making Patient is a 26-year-old female presenting to the emergency room for 3 days of right-sided breast pain. Lab work-up is largely unremarkable. Patient received IVF with improvement in heart rate. Serial lactates showed improvement. Patient received 1 dose of IV antibiotics. Patient is discharged for close follow-up. Case signed out to Dr. Willingham pending reassessment. Lab Data : 11/08/21 20:20 11/08/21 20:20 Radiology Impressions Soft Tissue Ultrasound 11/08/21 22:23 IMPRESSION: Somewhat diffuse subcutaneous edema adjacent to the right nipple in the 2-3 o'clock position concerning for a cellulitis, negative for focal fluid collection to suggest an abscess. Laboratory Results WBC 7.3 10^3/uL (4.0-10.0) 11/08/21 20:20 RBC 4.43 10^6/uL (4.1-5.3) 11/08/21 20:20 Hgb 10.9 g/dL (11.5-15.3) L 11/08/21 20:20 Hct 36.6 % (37.0-47.0) L 11/08/21 20:20 MCV 82.6 fl (81-99) 11/08/21 20:20 MCH 24.6 pg (28.0-34.0) L 11/08/21 20:20 MCHC 29.8 g/dL (30.0-36.0) L 11/08/21 20:20 RDW 16.3 % (12.1-15.1) H 11/08/21 20:20 Plt Count 221 10^3/cmm (130-400) 11/08/21 20:20 MPV 11.4 fL (7.4-10.4) H 11/08/21 20:20 Neut % (Auto) 78.1 % 11/08/21 20:20 Lymph % (Auto) 12.1 % 11/08/21 20:20 [place] % (Auto) 6.5 % 11/08/21 20:20 Eos % (Auto) 1.8 % 11/08/21 20:20 Baso % (Auto) 0.4 % 11/08/21 20:20 Neut # (Auto) 5.68 10^3/uL (1.8-7.7) 11/08/21 20:20 Lymph # (Auto) 0.9 10^3/uL (0.8-4.8) 11/08/21 20:20 [place] # (Auto) 0.5 10^3/uL (0.2-0.9) 11/08/21 20:20 Eos # (Auto) 0.1 10^3/uL (0.0-0.8) 11/08/21 20:20 Baso # (Auto) 0.0 10^3/uL (0.0-0.1) 11/08/21 20:20 Nucleated RBC % (auto) 0 % 11/08/21 20:20 Nucleated RBCs # 0.0 /100WBC 11/08/21 20:20 Sodium 140 mmol/L (136-145) 11/08/21 20:20 Potassium 4.0 mmol/L (3.5-5.1) 11/08/21 20:20 Chloride 104 mmol/L (98-107) 11/08/21 20:20 Carbon Dioxide 20 mmol/L (22-29) L 11/08/21 20:20 Anion Gap 20.0 (5-19) H 11/08/21 20:20 BUN 9 mg/dL (6-20) 11/08/21 20:20 Creatinine 0.7 mg/dL (0.5-0.9) 11/08/21 20:20 GFR Calculation 102.8 mL/min (90-130) 11/08/21 20:20 Glucose 99 mg/dL (65-115) 11/08/21 20:20 Calculated Osmolality 289 mOsm/kg (285-295) 11/08/21 20:20 Lactate 1.8 mmol/L (0.5-2.2) 11/08/21 22:30 Calcium 9.4 mg/dL (8.5-10.5) 11/08/21 20:20 Discharge Plan Discharge Patient Disposition: Home Clinical Impression: Mastitis without abscess Condition: Stable Prescriptions: New clindamycin HCl 300 mg capsule 300 mg PO Q6H 10 Days Qty: 40 0RF hydrocodone-acetaminophen 5-325 mg tablet 1 tab PO Q8H PRN (Reason: pain) Qty: 7 0RF Discontinued dicloxacillin 500 mg capsule 500 mg PO Q6H 14 Days Qty: 56 0RF No Action ibuprofen 800 mg Tablet 800 mg PO TID Qty: 45 0RF tablet 1 tab PO DAILY Discharge Orders: Discharge ED (Routine); Ordered 11/09/21 Ordered By: Nahid Willingham Referrals: Brian Miller MD [Primary Care Provider] - Janes Beltran MD [Physician] - 1-3 days Patient Instructions: Mastitis (ED), Opioid Safety Activity Restrictions/Additional Instructions: Return for fever greater than 100 despite 2-3 doses of the new antibiotic, worsening pain, spreading redness, or streaking despite 2-3 doses of the new antibiotic. Vomiting liquids or medications, other concerning symptoms. Call your doctor on Wednesday, they will want to see you in follow-up. Coding Level of Care Code ED Tree Feller for Yesika Fwd Exam Comprehensive
[2021-11-08] MEDS: acetaminophen 500 mg Tablet 1000 MG PO (20:20)
[2021-11-08 20:27] LABS: Basophils % 0.4 %; Eosinophils # 0.1 10^3/uL (0.0-0.8); Eosinophils % 1.8 %; Hematocrit 36.6 % (37.0-47.0); Hemoglobin 10.9 g/dL (11.5-15.3); Lymphocytes # 0.9 10^3/uL (0.8-4.8); Lymphocytes % 12.1 %; Mean Corpuscular HGB Conc 29.8 g/dL (30.0-36.0); Mean Corpuscular Hemoglobin 24.6 pg (28.0-34.0); Mean Corpuscular Volume 82.6 fl (81-99); Mean Platelet Volume 11.4 fL (7.4-10.4); Monocytes # 0.5 10^3/uL (0.2-0.9); Monocytes % 6.5 %; Neutrophils # 5.68 10^3/uL (1.8-7.7); Neutrophils % 78.1 %; Nucleated Red Blood Cells % 0 %; Platelet Count 221 10^3/cmm (130-400); Red Blood Count 4.43 10^6/uL (4.1-5.3); Red Cell Distribution Width 16.3 % (12.1-15.1); White Blood Count 7.3 10^3/uL (4.0-10.0)
[2021-11-08] MEDS: vancomycin 1,500 MG/300 ML PIGGYBACK 250 MG IV (20:27)
[2021-11-08] MEDS: sodium chloride 0.9% 1,000 ML 999 ML IV ×2 (20:27→22:50)
[2021-11-08 20:44] LABS: Lactate (Lactic Acid level) 2.7 mmol/L (0.5-2.2)
[2021-11-08 20:46] LABS: Blood Urea Nitrogen 9 mg/dL (6-20); Calcium 9.4 mg/dL (8.5-10.5); Carbon Dioxide 20 mmol/L (22-29); Chloride 104 mmol/L (98-107); Glomerular Filtration Rate 102.8 mL/min (90-130); Glucose 99 mg/dL (65-115); Osmolality Calculated 289 mOsm/kg (285-295); Sodium 140 mmol/L (136-145)
--- NOTE | 2021-11-08 22:23 | USR_ITS ---
PROCEDURE INFORMATION: Exam: US Unlisted Ultrasound Procedure Exam date and time: 11/08/2021 10:37 PM Age: 26 years old Clinical indication: Condition or disease; Condition/disease: Fever, hr elevated, possible skin infection; Patient HX: Right breast pain for past 3 days; Additional info: Skin infection of the breast / redness and swelling TECHNIQUE: Imaging protocol: Unlisted ultrasound procedure (eg, diagnostic, interventional). COMPARISON: No relevant prior studies available. FINDINGS: Procedural imaging: Somewhat diffuse subcutaneous edema adjacent to the right nipple in the 2-3 o'clock position concerning for a cellulitis, negative for focal fluid collection to suggest an abscess. US/US soft tissue/extremity [id number] IMPRESSION: Somewhat diffuse subcutaneous edema adjacent to the right nipple in the 2-3 o'clock position concerning for a cellulitis, negative for focal fluid collection to suggest an abscess.
--- NOTE | 2021-11-08 22:52 | PC.NURSE ---
Ultrasound at bedside
[2021-11-08 23:29] LABS: Lactate (Lactic Acid level) 1.8 mmol/L (0.5-2.2)
[2021-11-09 00:04] VITALS: PULSE 112; RESP 19; O2SAT 100
== END 2021-11-09 00:10 | disposition home or self-care (01) ==
PROVIDERS: Emergency Provider Emergency Medicine; PCP Family Medicine
DX: O91.22 Nonpurulent mastitis associated with the puerperium (principal)
CPT/HCPCS: 76882; 80048; 83605; 85025; 87040; 96365; 96366; 99285; J3370; J7030

== ENCOUNTER 2021-12-19 18:53 | Emergency (ER) | payer BC, SELFPAY ==
[2021-12-19 18:57] VITALS: BP 143/83; PULSE 88; RESP 15; TEMP 37.1; O2SAT 99; BMI 35.6
--- NOTE | 2021-12-19 20:00 | CTR_ITS ---
PROCEDURE INFORMATION: Exam: CT Head Without Contrast Exam date and time: 12/19/2021 8:38 PM Age: 26 years old Clinical indication: Dizziness; Additional info: Dizzy headache HTN TECHNIQUE: Imaging protocol: Computed tomography of the head without contrast. Radiation optimization: All CT scans at this facility use at least one of these dose optimization techniques: automated exposure control; mA and/or kV adjustment per patient size (includes targeted exams where dose is matched to clinical indication); or iterative reconstruction. COMPARISON: MR head wo/w con [id number] 01/19/2018 8:48 AM RADIATION DOSE METRICS: Total DLP (mGy-cm): 1094.22 FINDINGS: Brain: Normal. No hemorrhage. Unremarkable white matter. No mass effect. Cerebral ventricles: No ventriculomegaly. Paranasal sinuses: Small polyp or retention cyst in the left maxillary sinus. The other sinuses are clear. Mastoid air cells: Visualized mastoid air cells are well aerated. Bones/joints: Unremarkable. No acute fracture. Soft tissues: Unremarkable. CT/CT head wo con* [id number] IMPRESSION: No acute intracranial abnormality.
--- NOTE | 2021-12-19 20:00 | ECG_ITS ---
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 Measurements Intervals [place] Rate: 79 P: 19 VA: 139 QRS: 8 QRSD: 94 T: -3 QT: 358 QTc: 412 Interpretive Statements SINUS RHYTHM WITH SINUS ARRHYTHMIA Compared to ECG 03/25/2015 02:04:17 Sinus tachycardia no longer present Electronically Signed On 12-22-2021 23:05:52 CDT by Trinity Alicea M.D. [email or web address] pointe [email or web address]/[id number]
--- NOTE | 2021-12-19 20:00 | XRR_ITS ---
PROCEDURE INFORMATION: Exam: XR Chest Exam date and time: 12/19/2021 8:08 PM Age: 26 years old Clinical indication: Other: Dizzy, tingling/numb feeling through out body TECHNIQUE: Imaging protocol: Radiologic exam of the chest. Views: 1 view. COMPARISON: CR XR chest 2V* [id number] 03/25/2015 1:39 AM FINDINGS: Lungs: Unremarkable. No consolidation. Pleural spaces: Unremarkable. No pleural effusion. No pneumothorax. Heart/Mediastinum: Unremarkable. No cardiomegaly. Bones/joints: Unremarkable. XR/XR chest 1V portable [id number] IMPRESSION: No acute findings.
[2021-12-19 20:20] LABS: Basophils % 0.6 %; Eosinophils # 0.1 10^3/uL (0.0-0.8); Hematocrit 37.7 % (37.0-47.0); Hemoglobin 11.6 g/dL (11.5-15.3); Lymphocytes # 1.9 10^3/uL (0.8-4.8); Lymphocytes % 30.7 %; Mean Corpuscular HGB Conc 30.8 g/dL (30.0-36.0); Mean Corpuscular Hemoglobin 25.8 pg (28.0-34.0); Mean Corpuscular Volume 83.8 fl (81-99); Mean Platelet Volume 11.3 fL (7.4-10.4); Monocytes # 0.4 10^3/uL (0.2-0.9); Monocytes % 6.3 %; Neutrophils # 3.77 10^3/uL (1.8-7.7); Neutrophils % 61.1 %; Nucleated Red Blood Cells % 0 %; Platelet Count 219 10^3/cmm (130-400); Red Cell Distribution Width 17.5 % (12.1-15.1); White Blood Count 6.2 10^3/uL (4.0-10.0)
[2021-12-19 20:32] LABS: HCG, Serum Qual Negative (Negative)
--- NOTE | 2021-12-19 20:32 | ED_ITS ---
HPI - General Adult General: Chief complaint: General Medical Stated complaint: body tingling/heart racing Time Seen by Provider: 12/19/21 19:37 Source: patient and family History of Present Illness: 26-year-old female who is 8 weeks . She has had a week or so of symptoms, mainly numbness and tingling to her upper and lower extremities as well as her face, headache, a generalized feeling of malaise. She was seen at her doctor's office, and was placed on blood pressure medication, because her blood pressure was high that day. She actually stopped taking her blood pressure medication earlier in the week because she has been checking it, and it has not been extremely high. She feels like her heart is pounding in her chest at times, but her heart rate has not been significantly abnormal. Symptoms seem to come and go. She was not on medication prior to her . She is healthy. Onset (ago): day(s) Location: head Radiation: non-radiation Severity: mild Quality: dull Associated symptoms: Reports headache(s); Deny chest pain, confusion, cough, diaphoresis, dyspnea, fevers/chills, nausea, rash, seizures, syncope, vomiting or weakness Review of Systems Const: Denies: fever(s) or diaphoresis Eyes: Denies: blurry vision, eye discomfort or eye discharge ENMT: Denies: throat pain Card: Denies: chest pain or syncope Resp: Denies: dyspnea GI: Denies: abdominal pain, nausea or vomiting Skin/Breast: Denies: rash Neuro: Reports: headache(s); Denies: confusion Psych: Denies: anxiety PFSH ED PFSH: Medical History Social History Smoking and tobacco status: never smoked Alcohol intake: never Female Reproductive History: Date of last menstrual period: 12/05/21 Physical Exam Const: COMMON NORMALS: no acute distress and alert GENERAL APPEARANCE: cooperative; not ill appearing and not frail appearing HENMT: COMMON NORMALS: normocephalic, atraumatic and Normal external nose present HEAD & SCALP: normocephalic and atraumatic FACE & SINUS: normal facial exam and face symmetric NOSE: Normal external nose present Eye: COMMON NORMALS: Equal, round and reactive pupils present and EOMs intact bilaterally PUPIL: Yes Equal, round and reactive pupils present Neck/C-Spine: GENERAL: Yes trachea midline Chest: CHEST: Yes Symmetrical chest wall rise Resp: COMMON NORMALS: normal respiratory effort, No retractions, No use of accessory muscles and clear to auscultation bilaterally AUSCULTATION: clear to auscultation bilaterally Cardio: COMMON NORMALS: regular rate and regular rhythm RATE: regular rate RHYTHM: regular rhythm GI: COMMON NORMALS: Normal to inspection, nondistended, normoactive bowel sounds present Extremity: COMMON NORMALS: no pedal edema Neuro: JAIR COMA SCALE: document GCS findings Jair coma scale eye opening: Spontaneous Jair coma scale verbal response: Orientated Jair coma scale motor response: Obey commands Jair coma scale total score: 15 SENSORIUM/ORIENTATION: Yes alert CRANIAL NERVES: Yes CN normal except as noted COORDINATION/BALANCE: [id number] test normal and [id number] test normal SPEECH: speech normal SENSORY EXAM: Yes extremities (intact) MOTOR EXAM: 5/5 motor strength present throughout, Pronator motor function not present and Motor fasciculations not present COORDINATION: [id number] test normal and [id number] test normal Psych: COMMON NORMALS: speech normal SPEECH: Yes normal speech Skin: COMMON NORMALS: no rashes or lesions noted GENERAL SKIN EXAM: no rashes or lesions noted Course Vital Signs: Vital signs: Vital Signs Temperature 98.7 F 12/19/21 18:57 Pulse Rate 73 12/19/21 22:07 Respiratory Rate 16 12/19/21 22:07 Blood Pressure 130/77 12/19/21 22:07 Pulse Oximetry 98 12/19/21 22:07 Oxygen Delivery Me thod 12/19/21 18:57 [facility] - General Adult Medical Decision Making 26-year-old female with headache on and off and paresthesias to upper and lower extremities. She had had some hypertension. She is not currently hypertensive following 5 metoprolol IV. Her blood pressure is 128/62. Saturations 97% on room air. Respirations 14. Heart rate was 80-95 on arrival. Now 74 after metoprolol. EKG shows sinus rhythm with sinus arrhythmia, normal axis and intervals,1 rate of 79, no acute ST changes. No significant Q waves. CBC is normal. BMP is normal. Liver enzymes are minimally elevated TSH is mildly elevated. Headache is resolved paresthesias are not. She has no focal neurologic findings. Sensation is grossly intact on my exam. She is not weak could consider B12 deficiency, but given no anemia, not likely. She will be released given her unremarkable work-up. Outpatient follow-up. She knows to return for weakness, language problems, or other concerning symptoms. Her chest x-ray and head CT are nonacute. Lab Data : 12/19/21 20:10 12/19/21 20:10 Radiology Impressions Chest X-Ray 12/19/21 20:00 IMPRESSION: No acute findings. Head CT 12/19/21 20:00 IMPRESSION: No acute intracranial abnormality. Laboratory Results WBC 6.2 10^3/uL (4.0-10.0) 12/19/21 20:10 RBC 4.50 10^6/uL (4.1-5.3) 12/19/21 20:10 Hgb 11.6 g/dL (11.5-15.3) 12/19/21 20:10 Hct 37.7 % (37.0-47.0) 12/19/21 20:10 MCV 83.8 fl (81-99) 12/19/21 20:10 MCH 25.8 pg (28.0-34.0) L 12/19/21 20:10 MCHC 30.8 g/dL (30.0-36.0) 12/19/21 20:10 RDW 17.5 % (12.1-15.1) H 12/19/21 20:10 Plt Count 219 10^3/cmm (130-400) 12/19/21 20:10 MPV 11.3 fL (7.4-10.4) H 12/19/21 20:10 Neut % (Auto) 61.1 % 12/19/21 20:10 Lymph % (Auto) 30.7 % 12/19/21 20:10 [place] % (Auto) 6.3 % 12/19/21 20:10 Eos % (Auto) 1.0 % 12/19/21 20:10 Baso % (Auto) 0.6 % 12/19/21 20:10 Neut # (Auto) 3.77 10^3/uL (1.8-7.7) 12/19/21 20:10 Lymph # (Auto) 1.9 10^3/uL (0.8-4.8) 12/19/21 20:10 [place] # (Auto) 0.4 10^3/uL (0.2-0.9) 12/19/21 20:10 Eos # (Auto) 0.1 10^3/uL (0.0-0.8) 12/19/21 20:10 Baso # (Auto) 0.0 10^3/uL (0.0-0.1) 12/19/21 20:10 Nucleated RBC % (auto) 0 % 12/19/21 20:10 Nucleated RBCs # 0.0 /100WBC 12/19/21 20:10 Sodium 138 mmol/L (136-145) 12/19/21 20:10 Potassium 3.8 mmol/L (3.5-5.1) 12/19/21 20:10 Chloride 100 mmol/L (98-107) 12/19/21 20:10 Carbon Dioxide 27 mmol/L (22-29) 12/19/21 20:10 Anion Gap 14.8 (5-19) 12/19/21 20:10 BUN 11 mg/dL (6-20) 12/19/21 20:10 Creatinine 0.7 mg/dL (0.5-0.9) 12/19/21 20:10 GFR Calculation 102.8 mL/min (90-130) 12/19/21 20:10 Glucose 83 mg/dL (65-115) 12/19/21 20:10 Calculated Osmolality 285 mOsm/kg (285-295) 12/19/21 20:10 Calcium 10.2 mg/dL (8.5-10.5) 12/19/21 20:10 Magnesium 2.2 mg/dL (1.7-2.3) 12/19/21 20:10 Total Bilirubin 0.7 mg/dL (0.15-1.2) 12/19/21 20:10 AST 50 U/L (0-32) H 12/19/21 20:10 ALT 68 U/L (0-33) H 12/19/21 20:10 Alkaline Phosphatase 105 U/L (35-105) 12/19/21 20:10 Creatine Kinase 52 U/L (26-192) 12/19/21 20:10 Troponin T Gen 5 ng/L 6 ng/L (0-10) 12/19/21 20:10 Total Protein 8.0 g/dL (6.6-8.7) 12/19/21 20:10 Albumin 4.5 g/dL (3.5-5.2) 12/19/21 20:10 Globulin 3.5 g/dL (1.3-4.6) 12/19/21 20:10 TSH 7.96 uIU/mL (0.27-4.20) H 12/19/21 20:10 HCG, Qual Negative (Negative) 12/19/21 20:10 Urine Color Yellow (Yellow) 12/19/21 20:50 Urine Appearance Sl hazy (CLEAR) A 12/19/21 20:50 Urine pH 7 (5-7) 12/19/21 20:50 Ur Specific [place] 1.010 (1.005-1.030) 12/19/21 20:50 Urine Protein Neg (Negative) 12/19/21 20:50 Urine Glucose (UA) Norm (Normal) 12/19/21 20:50 Urine Ketones Negative (Negative) 12/19/21 20:50 Urine Blood Neg (Negative) 12/19/21 20:50 Urine Nitrate Negative (Negative) 12/19/21 20:50 Urine Bilirubin Neg (Negative) 12/19/21 20:50 Urine Urobilinogen 4 mg/dL (Negative) H 12/19/21 20:50 Ur Leukocyte Esterase Negative (Negative) 12/19/21 20:50 Discharge Plan Discharge Patient Disposition: Home Clinical Impression: Paresthesias Condition: Stable Prescriptions: No Action ibuprofen 800 mg Tablet 800 mg PO TID Qty: 45 0RF tablet 1 tab PO DAILY hydrocodone-acetaminophen 5-325 mg tablet 1 tab PO Q8H PRN (Reason: pain) Qty: 7 0RF Discharge Orders: Discharge ED (Routine); Ordered 12/19/21 Ordered By: Nahid Willingham Referrals: Brian Miller MD [Primary Care Provider] - 4-7 days Patient Instructions: Paresthesia (ED), Opioid Safety, Pain Management Activity Restrictions/Additional Instructions: As discussed in the ER, take a B complex vitamin daily. Continue to check your blood pressures twice daily as well as your heart rate, and log these things. You may need your thyroid function retested in 6 to 8 weeks. Return for wea kness, language problems, syncope or passing out, worsening headache, any other concerning symptoms. Coding Level of Care Code ED Contracts Attorney for Chg Fwd Exam Comprehensive
[2021-12-19 20:44] LABS: Alanine Aminotransferase 68 U/L (0-33); Albumin Level 4.5 g/dL (3.5-5.2); Alkaline Phosphatase 105 U/L (35-105); Anion Gap 14.8 (5-19); Aspartate Amino Transferase 50 U/L (0-32); Blood Urea Nitrogen 11 mg/dL (6-20); Calcium 10.2 mg/dL (8.5-10.5); Carbon Dioxide 27 mmol/L (22-29); Chloride 100 mmol/L (98-107); Creatine Phosphokinase 52 U/L (26-192); Globulin 3.5 g/dL (1.3-4.6); Glomerular Filtration Rate 102.8 mL/min (90-130); Glucose 83 mg/dL (65-115); Magnesium 2.2 mg/dL (1.7-2.3); Osmolality Calculated 285 mOsm/kg (285-295); Potassium 3.8 mmol/L (3.5-5.1); Sodium 138 mmol/L (136-145); Total Bilirubin 0.7 mg/dL (0.15-1.2)
[2021-12-19 20:45] LABS: Troponin T (5th) Once 6 ng/L (0-10)
[2021-12-19 20:48] VITALS: BP 134/87; PULSE 94; RESP 15; O2SAT 97
[2021-12-19] MEDS: metoprolol tartrate 1 mg/1 mL SDV 5 mL 5 MG IVP (20:49)
[2021-12-19 20:58] LABS: Add Urine Microscopic? NO; Charge for UA Resulting for Rev
[2021-12-19 21:05] LABS: Bilirubin Urine Neg (Negative); Blood Urine Neg (Negative); Glucose Urine UA Norm (Normal); Ketones Urine Negative (Negative); Leukocyte Esterase Urine Negative (Negative); Nitrate Urine Negative (Negative); Protein Urine Neg (Negative); Urine Appearance SL Hazy (CLEAR); Urine Color Yellow (Yellow); Urobilinogen Urine 4 mg/dL (Negative); pH Urine 7 (5-7)
[2021-12-19 21:18] VITALS: BP 135/78; PULSE 78; O2SAT 98
[2021-12-19 21:18] LABS: Thyroid Stimulating Hormone 7.96 uIU/mL (0.27-4.20)
[2021-12-19 22:07] VITALS: BP 130/77; PULSE 73; RESP 16; O2SAT 98
== END 2021-12-19 22:08 | disposition home or self-care (01) ==
PROVIDERS: Emergency Provider Emergency Medicine; PCP Family Medicine
DX: R20.2 Paresthesia of skin (principal); R51.9 Headache, unspecified; I10 Essential (primary) hypertension
CPT/HCPCS: 70450; 71045; 80053; 81003; 82550; 83735; 84443; 84484; 84703; 85025; 93005; 96374; 99285; J3490

== ENCOUNTER → 2022-08-25 09:41 | Outpatient (BNVA) | payer SELFPAY | PROVIDERS: PCP Family Medicine; Visit Provider Internal Medicine Rheumatology | DX: Z79.899 Other long term (current) drug therapy (principal); R76.8 Other specified abnormal immunological findings in serum; R20.2 Paresthesia of skin | CPT/HCPCS: 36415; 84439; 84443; 85651; 86140; 86160; 86162; 86235; 86255; 86376 ==